=== PATIENT | female | born 2005 | race Hispanic/Latino ===

== ENCOUNTER 2023-04-29 10:52 | Emergency (ER) | payer MEDICAID, OTHER ==
[2023-04-29 12:37] LABS: SARS-CoV-2 NAA Rapid Test DETECTED (NotDetected)
== END 2023-04-29 13:25 | disposition home or self-care (01) ==
LOC: CSHERS 10:52
DX: U07.1 COVID-19 (principal)
CPT/HCPCS: 87081; 87430; 99284